=== PATIENT | female | born 1995 | race African-American/Black ===

== ENCOUNTER 2019-04-13 12:55 | Observation (INO) | payer MEDICAID ==
[~2019-04-13] VITALS: Ht 157.5 cm; Wt 50.8 kg
[2019-04-13] MEDS ORDERED: DEXT 5%/LACTATED RINGERS 1,000 ML IV SCH (13:45)
[2019-04-13 14:09] LABS: CLARITY URINE CLEAR (CLEAR); COLOR URINE YELLOW (YELLOW); KETONES URINE NEGATIVE (NEGATIVE); LEUKOCYTE ESTERASE URINE NEGATIVE (NEGATIVE); NITRITE URINE NEGATIVE (NEGATIVE); OCCULT BLOOD URINE NEGATIVE (NEGATIVE); PH URINE 6.5 (4.5-8.0); PROTEIN URINE NEGATIVE (NEGATIVE); SPECIFIC GRAVITY URINE 1.007 (1.005-1.030); UROBILINOGEN URINE 0.2 E.U./dL (0.2-1.0)
== END 2019-04-13 16:05 | disposition left against medical advice (07) ==
LOC: 8 EST LDRP 12:55
PROVIDERS: ADMIT Obstetrics & Gynecology; ATTEND Obstetrics & Gynecology
DX: O26.893 Other specified pregnancy related conditions, third trimester (principal); R10.9 Unspecified abdominal pain; Z3A.29 29 weeks gestation of pregnancy
CPT/HCPCS: 76805; 76817; 76818; 81003; 82731; 96361; 99281; G0378; 96360

== ENCOUNTER 2019-04-24 00:51 | Observation (INO) | payer MEDICAID ==
[~2019-04-24] VITALS: Ht 157.5 cm; Wt 52.2 kg
[2019-04-24] MEDS ORDERED: FOLI20CA PO (01:14)
[2019-04-24] MEDS ORDERED: PREN1TAB78 MT (01:14)
[2019-04-24] MEDS ORDERED: ONDANSETRON HCL 4MG/2ML INJ IV PRN ×2 (01:45)
[2019-04-24] MEDS ORDERED: LACTATED RINGERS 1,000 ML IV SCH (01:45)
[2019-04-24 02:12] LABS: CLARITY URINE CLEAR (CLEAR); COLOR URINE YELLOW (YELLOW); KETONES URINE NEGATIVE (NEGATIVE); LEUKOCYTE ESTERASE URINE NEGATIVE (NEGATIVE); NITRITE URINE NEGATIVE (NEGATIVE); OCCULT BLOOD URINE NEGATIVE (NEGATIVE); PH URINE 7.5 (4.5-8.0); PROTEIN URINE NEGATIVE (NEGATIVE); SPECIFIC GRAVITY URINE 1.013 (1.005-1.030)
[2019-04-24 02:13] LABS: HEMATOCRIT 32.3 % (36.0-48.0); HEMOGLOBIN 10.5 g/dL (12.0-16.0); MEAN CORPUSCULAR HEMOGLOBIN 25.3 pg (28.0-32.0); PLATELET 243 x1000/uL (130-400); RED BLOOD CELL COUNT 4.15 mill/uL (4.2-5.4); RED CELL DISTRIBUTION WIDTH 17.8 % (11.6-14.6)
[2019-04-24 02:16] LABS: CHLORIDE 105 mEq/L (98-107)
[2019-04-24 02:31] LABS: *AMPHETAMINES SCREEN URINE NEGATIVE (NEGATIVE); *BARBITURATES SCREEN URINE NEGATIVE (NEGATIVE); *BENZODIAZEPINES SCREEN URINE NEGATIVE (NEGATIVE); METHADONE URINE SCREEN NEGATIVE (NEGATIVE); OPIATES URINE SCREEN NEGATIVE (NEGATIVE); PHENCYCLIDINE URINE SCREEN NEGATIVE (NEGATIVE)
[2019-04-24 02:34] LABS: *COCAINE SCREEN URINE NEGATIVE (NEGATIVE)
[2019-04-24 02:37] LABS: CANNABINOID URINE SCREEN PRESUMTIVE POSITIVE (NEGATIVE)
[2019-04-24 03:12] VITALS: BP 120/70
[2019-04-24] MEDS ORDERED: BUTORPHANOL TARTRATE 2 MG/ML VIAL IV PRN (03:15)
[2019-04-27 13:06] LABS: CANNABINOID CONFIRMATION URINE Positive (.)
== END 2019-04-24 08:30 | disposition home or self-care (01) ==
LOC: 8 EST LDRP 00:51
PROVIDERS: ADMIT Obstetrics & Gynecology; ATTEND Obstetrics & Gynecology
DX: O21.2 Late vomiting of pregnancy (principal); O26.893 Other specified pregnancy related conditions, third trimester; O62.9 Abnormality of forces of labor, unspecified; R10.9 Unspecified abdominal pain; Z3A.31 31 weeks gestation of pregnancy
CPT/HCPCS: 36415; 80053; 80305; 80349; 81003; 85027; 96361; 96374; 96375; 99281; G0378; J0595; J2405; 96360; 96372; J7120

== ENCOUNTER 2019-09-21 14:24 | Emergency (ER) | payer MEDICAID ==
[~2019-09-21] VITALS: Ht 160 cm; Wt 54.0 kg
[~2019-09-21 14:24] MED LIST: FOLI20CA PO; PREN1TAB78 MT
[2019-09-21 14:36] VITALS: BP 140/95
== END 2019-09-21 16:00 | disposition left against medical advice (07) ==
LOC: ER 14:24
DX: Z53.21 Procedure and treatment not carried out due to patient leaving prior to being seen by health care provider (principal)

== ENCOUNTER 2020-03-04 03:48 | Emergency (ER) | payer OTHER ==
[~2020-03-04] VITALS: Ht 160 cm; Wt 55.0 kg
[~2020-03-04 03:48] MED LIST changes: -FOLI20CA PO; +HYDR-3992 PO; -PREN1TAB78 MT
[2020-03-04 03:51] VITALS: BP 167/114
== END 2020-03-04 08:02 | disposition left against medical advice (07) ==
LOC: ER 03:48
DX: Z53.21 Procedure and treatment not carried out due to patient leaving prior to being seen by health care provider (principal)

== ENCOUNTER 2020-06-04 15:23 | Emergency (ER) | payer MEDICAID, OTHER ==
[~2020-06-04] VITALS: Ht 160 cm; Wt 54.0 kg
[2020-06-04 15:50] VITALS: BP 116/64
== END 2020-06-04 15:55 | disposition home or self-care (01) ==
LOC: ER 15:23
DX: S60.445D External constriction of left ring finger, subsequent encounter (principal); Z88.8 Allergy status to other drugs, medicaments and biological substances; Z98.890 Other specified postprocedural states; X58.XXXA Exposure to other specified factors, initial encounter; Y93.89 Activity, other specified; Y92.89 Other specified places as the place of occurrence of the external cause; Y99.8 Other external cause status
CPT/HCPCS: 99281